=== PATIENT | female | born 1980 | race Caucasian/White ===

== ENCOUNTER 2018-05-16 04:27 | Outpatient (CLI) | payer SELFPAY ==
[2018-05-16 08:50] LABS: HEMOGLOBIN A1C 5.6 % (4.5-6.2)
[2018-05-16 09:08] LABS: CHOL/HDL RATIO 4.19 (0.00-4.99)
== END 2018-05-16 23:59 | disposition home or self-care (01) ==
LOC: HW HEART 04:27
DX: Z13.6 Encounter for screening for cardiovascular disorders (principal)
CPT/HCPCS: 36415